=== PATIENT | male | born 2000 | race Caucasian/White ===

== ENCOUNTER 2024-03-22 17:13 | Emergency (ER) | payer MEDICAID, SELFPAY ==
[2024-03-22 17:21] VITALS: BP 120/65; PULSE 77; TEMP 36.9; O2SAT 98; BMI 21.2
--- NOTE | 2024-03-22 17:44 | ED_ITS ---
HPI HPI - General Adult General Chief complaint: Skin/Abscess/Foreign Body Stated complaint: UPPER EXTREMITY LEFT, SKIN Time Seen by Provider: 03/22/24 17:26 Source: patient Mode of arrival: walk-in Limitations: no limitations History of Present Illness HPI narrative: Patient presenting to us after he had a wasp sting yesterday at home, patient mentioned that it was to the his left arm and he has been having some itching there since then and feeling his arm hot. No fever no chills no other complaints no difficulty breathing or any other rash Related Data Previous Rx's ?Medication ?Instructions ?Recorded alclometasone 0.05 % topical cream 1 applic topical BID 5 days #45 03/22/24 grams diphenhydramine HCl 2 % topical 1 applic topical TID PRN itching 03/22/24 gel (Benadryl) #103 mL Opioid HPI Opioid Management Most Recent Opioid Data: No Data to Display Review of Systems ROS Status of ROS 10 or more systems reviewed and unremark able except as noted in history and below Exam Narrative Exam Narrative: Skin examination showed that the patient have the posterior aspect of the left arm to sting sites that are not inflamed showing no redness no hotness and no signs of infection but there is some inflammation Nurses notes and vital signs reviewed and patient is not hypoxic. General: Well-appearing and in no apparent distress. Skin: Warm, dry, no pallor noted. No rash. Head: Normocephalic, atraumatic. Neck: Supple, non-tender. Eye: Pupils are equal, round and EOMI. No scleral icterus. Ears, Nose, Mouth, and Throat: TM are clear, no nasal mucosal hypertrophy. Oral mucosa is moist, no posterior oropharynx erythema, uvula is mid-line Cardiovascular: Regular Rate and Rhythm without murmur, gallop or rub. Respiratory: No accessory muscle use or respiratory distress. Lungs are clear to auscultation, no wheezing, rales or rhonchi Chest Wall: no tenderness Back: No midline thoracic or lumbar vertebral tenderness. No CVA tenderness Musculoskeletal: normal ROM, no calf or popliteal tenderness, no lower extremity edema/swelling GI: Abdomen is soft, non-distended. Normal bowel sounds. No masses appreciated. No tenderness to palpation. No rebound, guarding, or rigidity noted. Neurological: A&O x4. No cranial nerve dysfunction observed. No truncal ataxia. Moves all extremities. Sensation intact. Psychiatric: Cooperative and interactive. Normal mood and affect. Constitutional Vital Signs, click to edit/add: Last Vital Signs Temp 98.5 F 03/22/24 17:21 Pulse 77 03/22/24 17:21 Resp 18 03/22/24 17:21 BP 120/65 03/22/24 17:21 Pulse Ox 98 03/22/24 17:21 O2 Del Method Room Air 03/22/24 17:21 Course Vital Signs Vital signs: Vital Signs Temperature 98.5 F 03/22/24 17:21 Pulse Rate 77 03/22/24 17:21 Respiratory Rate 18 03/22/24 17:21 Blood Pressure 120/65 03/22/24 17:21 Pulse Oximetry 98 03/22/24 17:21 Oxygen Delivery Method Room Air 03/22/24 17:21 Temperature 98.5 F 03/22/24 17:21 Pulse Rate 77 03/22/24 17:21 Respiratory Rate 18 03/22/24 17:21 Blood Pressure 120/65 03/22/24 17:21 Pulse Oximetry 98 03/22/24 17:21 Oxygen Delivery Method Room Air 03/22/24 17:21 Medical Decision Making MDM Narrative Medical decision making narrative: The patient examination is mostly showing allergic reaction mostly secondary to the wasp sting No systemic reaction at the moment and the patient had the sting yesterday He was provided with prednisone in the ER discharged home with Benadryl and hydrocortisone low-dose cream The patient is to follow up with primary care physician in next 2-3 days or to return to the emergency department should any of the signs or symptoms worsen or new symptoms develop. The patient agrees with the following Diagnosis and Treatment plan and the patient will be discharged home. Discharge Plan Discharge Stand Alone Forms: Portal Instructions Chief Complaint: Skin/Abscess/Foreign Body Clinical Impression: Allergic reaction to bee sting Patient Disposition: Home, Self-Care Time of Disposition Decision: 17:40 Condition: Good Prescriptions / Home Meds: New Benadryl 2 % gel 1 applic topical TID PRN (Reason: itching) Qty: 103 0RF alclometasone 0.05 % cream 1 applic topical BID 5 Days Qty: 45 0RF Print Language: Green[place]ic Instructions: Insect Bite or Sting (ED) Referrals: Physician,Non-Staff, MD [Primary Care Provider] - 1 week
[2024-03-22] MEDS: ACETAMINOPHEN 325 MG TABLET 650 MG PO (17:50)
[2024-03-22] MEDS: PREDNISONE 20 MG TABLET 40 MG PO (17:50)
[2024-03-22 18:02] VITALS: BP 123/67; PULSE 64; O2SAT 98
== END 2024-03-22 18:04 | disposition home or self-care (01) ==
PROVIDERS: Emergency Provider Emergency Medicine
DX: T63.441A Toxic effect of venom of bees, accidental (unintentional), initial encounter (principal)
CPT/HCPCS: 99283; J7512